=== PATIENT | male | born 1935 | race Caucasian/White ===

== ENCOUNTER 2017-10-03 12:01 | Emergency (ER) | payer MEDICARE, OTHER ==
[~2017-10-03] VITALS: Ht 175.3 cm; Wt 65.8 kg
[~2017-10-03 12:01] MED LIST: KEFLEX500 MG ORAL
[2017-10-03 12:18] VITALS: BP 131/81
[2017-10-03] MEDS ORDERED: Naproxen 375mg tab ORAL SCH (13:15)
--- NOTE | 2017-10-03 13:33 | Emergency Room Report ---
History of Present Illness General Chief Complaint: Multiple Trauma/Fall Source: Patient, Medical Record Present Illness HPI This patient kind of banged his left side/poked on bannister about 1.5 days ago. Went to who referred him here. Hurts on left posterior/lateral chest wall. No other cp. No sob but hurts a little to breathe. No fever, no cough. No abd pain. No vomiting. 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 yrs Review of Systems Constitutional: Denies: fever Eye: Denies: acuity changes Respiratory: Denies: cough, shortness of breath Cardiovascular: Denies: chest pain Gastrointestinal: Denies: nausea, vomiting Skin: Denies: rash Neurological: Denies: headache All Other Systems: negative except mentioned in HPI Physical Exam Vital Signs Date Time Temp Pulse Resp B/P (MAP) Pulse Ox O2 Delivery O2 Flow Rate FiO2 10/03/17 12:09 97.7 56 18 131/81 95 Room Air 97.7 General Appearance: well appearing, no apparent distress Head: normocephalic, atraumatic ENT: hearing grossly normal, normal voice Neck: full range of motion, supple Respiratory: no respiratory distress, speaking full sentences, other - there is reproducible tenderness left lateral costal margin Musculoskeletal: no calf tenderness Neurologic: alert, normal gait Psychiatric: mood/affect normal Skin: no rash Medical Decision Making Diagnostic Impression: Primary Impression: Contusion of rib on left side Chest X-Ray Diagnostic Results Chest X-Ray Diagnostic Results : Chest X-Ray Ordered: Yes # of Views/Limited/Complete: 1 View Indication: Chest Pain EP Interpretation: Yes Interpretation: no consolidation, no effusion, no pneumothorax, no acute cardiopulmonary disease Last Vital Signs Date Time Temp Pulse Resp B/P (MAP) Pulse Ox O2 Delivery O2 Flow Rate FiO2 10/03/17 12:18 97.7 58 18 131/81 95 Room Air 97.7 Disposition: HOME, SELF-CARE Condition: Stable Referrals: NON PHYSICIAN (PCP) Patient Instructions: Rib Contusion Gilbert Cruz M.D. Oct 03, 2017 13:33
[2017-10-03] MEDS ORDERED: NAPROXEN375 M2 ORAL (13:34)
[2017-10-03 13:53] VITALS: BP 131/81
--- NOTE | 2017-10-03 14:22 | Diagnostic Imaging Report ---
Indication: Chest pain Comparison: 04/29/2009 A single view chest radiograph was obtained. Findings: The lungs are clear. Borderline cardiomegaly is present. Bones are osteopenic. Pulmonary vascularity is normal. IMPRESSION: No acute disease
== END 2017-10-03 13:55 | disposition home or self-care (01) ==
LOC: EMR 13:20
DX: S20.211A Contusion of right front wall of thorax, initial encounter (principal); W22.8XXA Striking against or struck by other objects, initial encounter; Y93.89 Activity, other specified; Y92.89 Other specified places as the place of occurrence of the external cause
CPT/HCPCS: 71045; 99283

== ENCOUNTER 2017-11-14 00:28 | Inpatient (IN) | payer MEDICARE, OTHER ==
[~2017-11-14] VITALS: Ht 175.3 cm; Wt 68.1 kg
[~2017-11-14 00:28] MED LIST changes: +BACITRACIN-P28.35 GM TP; +BACTRIM DS TAB1 EAC1 ORAL; +CEPHALEXIN500 MG ORAL; +NAPROXEN375 M2 ORAL
[2017-11-14] MEDS ORDERED: LAMICTAL25 MG ORAL (00:54)
[2017-11-14 00:55] VITALS: BP 142/75
[2017-11-14 01:32] LABS: ANION GAP 8 mmol/L (5-15); BLOOD UREA NITROGEN 28 mg/dL (7-18); CALCIUM 9.6 MG/DL (8.5-10.1); CARBON DIOXIDE 27 MMOL/L (21-32); CHLORIDE 105 MMOL/L (98-107); CREATININE 1.3 MG/DL (0.55-1.30); HEMATOCRIT 42.6 % (42.0-52.0); HEMOGLOBIN 14.5 G/DL (14.2-18.0); MEAN CORPUSCULAR VOLUME 94 FL (80-99); PLATELET COUNT 141 K/UL (150-450); POTASSIUM 4.5 MMOL/L (3.5-5.1); RED BLOOD COUNT 4.53 M/UL (4.70-6.10); RED CELL DISTRIBUTION WIDTH 12.3 % (11.6-14.8); SODIUM 140 MMOL/L (136-145); WHITE BLOOD COUNT 7.5 K/UL (4.8-10.8)
[2017-11-14 02:00] VITALS: BP 144/76
[2017-11-14 02:09] LABS: APPEARANCE,URINE CLEAR; BILIRUBIN, URINE NEGATIVE (NEGATIVE); COLOR,URINE PALE YELLOW; GLUCOSE, URINE (UA) NEGATIVE (NEGATIVE); KETONES,URINE NEGATIVE (NEGATIVE); LEUKOCYTE ESTERASE ,URINE NEGATIVE (NEGATIVE); NITRITE,URINE NEGATIVE (NEGATIVE); PH,URINE 5 (4.5-8.0); PROTEIN,URINE 2+ (NEGATIVE); UROBILINOGEN,URINE NORMAL MG/DL (0.0-1.0)
--- NOTE | 2017-11-14 02:09 | Emergency Room Report ---
History of Present Illness General Chief Complaint: Multiple Trauma/Fall Source: Significant Other Present Illness HPI Is an 81-year-old male with a history of hemorrhagic stroke in the past. He is unsteady on his feet and uses a walker at home. He presents with chief complaint of increasing fall. His been ongoing for last few days. Per his he fell and sustained an abrasion to his right leg last week. He's been having incontinence of his urine. He's been unsteady on his feet. No fever chills but no nausea vomiting. He was trying get out of the car today and fell and had a skin abrasion to his right elbow. No head injury. No nausea no vomiting. No fever or chills. History is limited on this patient because of his dementia and previous stroke. History through his . Is no new focal deficit. Allergies: Coded Allergies: No Known Allergies (Verified Allergy, Unknown, 04/29/09) Patient History Past Medical History: see triage record, old chart reviewed Past Surgical History: other Pertinent Family History: none Social History: Denies: smoking Immunizations: other Reviewed Nursing Documentation: PMH: Agreed; PSxH: Agreed Nursing Documentation-PMH Past Medical History: No History, Except For Hx Neurological Problems: Yes - encephalitis Review of Systems Eye: Denies: eye pain, blurred vision ENT: Denies: ear pain, nose congestion, throat swelling Respiratory: Denies: cough, shortness of breath Cardiovascular: Denies: chest pain, palpitations Gastrointestinal: Denies: abdominal pain, diarrhea, nausea, vomiting Musculoskeletal: Reports: joint pain, muscle pain; Denies: back pain Skin: Denies: rash Neurological: Denies: headache, numbness Endocrine: Denies: increased thirst, increased urine Hematologic/Lymphatic: Denies: easy bruising All Other Systems: negative except mentioned in HPI Physical Exam Vital Signs Date Time Temp Pulse Resp B/P (MAP) Pulse Ox O2 Delivery O2 Flow Rate FiO2 11/14/17 00:48 97.6 62 21 167/90 99 Room Air 97.5 vitals with high blood pressure Sp02 EP Interpretation: reviewed, normal General Appearance: no apparent distress, alert, Chronically Ill Head: normocephalic, atraumatic Eyes: bilateral eye PERRL, bilateral eye EOMI ENT: hearing grossly normal, normal pharynx Neck: full range of motion, supple, no meningismus Respiratory: chest non-tender, lungs clear, normal breath sounds Cardiovascular #1: regular rate, rhythm, no murmur Gastrointestinal: normal bowel sounds, non tender, no mass, no organomegaly, no bruit, non-distended Musculoskeletal: back normal, normal range of motion, other - Right elbow with skin avulsion. Full range of motion. Skin abrasion to left forearm. Skin abrasion to right tib-fib. Neurologic: alert, oriented x3 Psychiatric: mood/affect normal Skin: warm/dry Medical Decision Making Diagnostic Impression: Primary Impression: Multiple injuries due to trauma Additional Impressions: Frequent falls Failure to thrive Qualified Codes: R62.7 - Adult failure to thrive Dehydration Abrasion of skin ER Course Patient presents with frequent falls. No evidence of any fracture. No evidence of any bleed. Increased risk for head injury and fracture because of fall risk. No evidence of any infection. Will admit for further workup. May need snf placement. I contacted Dr. Pitts for admission. Lab Results Impression labs unremarkable EKG Diagnostic Results Rate: normal Rhythm: NSR ST Segments: no acute changes Rhythm Strip Diag. Results Rhythm Strip Time: 02:33 EP Interpretation: yes Rate: 65 Rhythm: NSR, no PVC's, no ectopy Chest X-Ray Diagnostic Results Chest X-Ray Diagnostic Results : Chest X-Ray Ordered: Yes # of Views/Limited/Complete: 1 View Indication: Shortness of Breath EP Interpretation: Yes Interpretation: no consolidation, no effusion, no pneumothorax, no acute cardiopulmonary disease Impression: No acute disease Electronically Signed by: Og Low MD Other X-Ray Diagnostic Results Other X-Ray Diagnostic Results : X-Ray ordered: Rt elbow xrays # of Views/Limited Vs Complete: 3 View Indication: Pain EP Interpretation: Yes Interpretation: no dislocation, no soft tissue swelling, no fractures Impression: No acute disease Electronically Signed by: Og Low MD CT/MRI/US Diagnostic Results CT/MRI/US Diagnostic Results : Imaging Test Ordered: CT head Impression no acute process per radiologist Last Vital Signs Date Time Temp Pulse Resp B/P (MAP) Pulse Ox O2 Delivery O2 Flow Rate FiO2 11/14/17 00:48 97.6 62 21 167/90 99 Room Air 97.5 Status: improved Disposition: ADMITTED INPATIENT Condition: Serious Referrals: NON PHYSICIAN (PCP) Og Low MD Nov 14, 2017 02:09
[2017-11-14 08:00] VITALS: BP 131/71
--- NOTE | 2017-11-14 08:56 | Consultation ---
History of Present Illness General Date patient seen: Nov 14, 2017 Chief Complaint: Present Illness Allergies: Coded Allergies: No Known Allergies (Verified Allergy, Unknown, 04/29/09) Medication History Scheduled Lamotrigine* (Lamictal*), 50 MG ORAL BID, (Reported) Discontinued Medications Bacitracin/Polymyxin B Sulfate (Bacitracin-Polymyxin Ointment), 1 APPLIC TP BID Discontinued Reason: Therapy completed Cephalexin* (Keflex*), 500 MG ORAL Q6H Discontinued Reason: Therapy completed Cephalexin* (Keflex*), 500 MG ORAL EVERY 12 HOURS Discontinued Reason: Therapy completed Naproxen* (Naproxen*), 375 MG ORAL TWICE A DAY Discontinued Reason: Therapy completed Trimethoprim/Sulfamethoxazole 160/800* (Bactrim Ds Tablet*), 1 TAB ORAL TWICE A DAY Discontinued Reason: Therapy completed Patient History Healthcare decision maker Clarence Ferrara Resuscitation status Full Code Advanced Directive on File No Physical Exam Last 24 Hour Vital Signs Date Time Temp Pulse Resp B/P (MAP) Pulse Ox O2 Delivery O2 Flow Rate FiO2 11/14/17 04:11 Room Air 11/14/17 03:45 97.6 68 22 144/76 99 Room Air 97.6 11/14/17 02:00 97.6 68 22 144/76 99 Room Air 97.6 11/14/17 00:55 97.6 67 22 142/75 99 Room Air 97.6 11/14/17 00:48 97.6 62 21 167/90 99 Room Air 97.5 Intake and Output 11/13/17 11/14/17 19:00 07:00 Intake Total 1000 ml Balance 1000 ml Intake IV Total 1000 ml # Voids 2 # Bowel Movements 1 Laboratory Tests Test 11/14/17 01:10 11/14/17 01:50 White Blood Count 7.5 K/UL (4.8-10.8) Red Blood Count 4.53 M/UL (4.70-6.10) L Hemoglobin 14.5 G/DL (14.2-18.0) Hematocrit 42.6 % (42.0-52.0) Mean Corpuscular Volume 94 FL (80-99) Mean Corpuscular Hemoglobin 32.0 PG (27.0-31.0) H Mean Corpuscular Hemoglobin Concent 34.1 G/DL (32.0-36.0) Red Cell Distribution Width 12.3 % (11.6-14.8) Platelet Count 141 K/UL (150-450) L Mean Platelet Volume 5.6 FL (6.5-10.1) L Neutrophils (%) (Auto) % (45.0-75.0) Lymphocytes (%) (Auto) % (20.0-45.0) Monocytes (%) (Auto) % (1.0-10.0) Eosinophils (%) (Auto) % (0.0-3.0) Basophils (%) (Auto) % (0.0-2.0) Sodium Level 140 MMOL/L (136-145) Potassium Level 4.5 MMOL/L (3.5-5.1) Chloride Level 105 MMOL/L (98-107) Carbon Dioxide Level 27 MMOL/L (21-32) Anion Gap 8 mmol/L (5-15) Blood Urea Nitrogen 28 mg/dL (7-18) H Creatinine 1.3 MG/DL (0.55-1.30) Estimat Glomerular Filtration Rate mL/min (>60) Glucose Level 101 MG/DL (74-106) Calcium Level 9.6 MG/DL (8.5-10.1) Troponin I 0.040 ng/mL (0.000-0.056) Urine Color Pale yellow Urine Appearance Clear Urine pH 5 (4.5-8.0) Urine Specific [place] 1.020 (1.005-1.035) Urine Protein 2+ (NEGATIVE) H Urine Glucose (UA) Negative (NEGATIVE) Urine Ketones Negative (NEGATIVE) Urine Blood 5+ (NEGATIVE) H Urine Nitrite Negative (NEGATIVE) Urine Bilirubin Negative (NEGATIVE) Urine Urobilinogen Normal MG/DL (0.0-1.0) Urine Leukocyte Esterase Negative (NEGATIVE) Urine RBC 40-60 /HPF (0 - 0) H Urine WBC 0-2 /HPF (0 - 0) Urine Squamous Epithelial Cells None /LPF (NONE/OCC) Urine Bacteria Few /HPF (NONE) Height (Feet): 5 Height (Inches): 9.00 Weight (Pounds): 150 Medications Current Medications Medications (Trade) Dose Ordered Sig/[place] Route PRN Reason Start Time Stop Time Status Last Admin Dose Admin Acetaminophen (Tylenol) 650 mg Q4H PRN ORAL Mild Pain/Temp > 100.5 10/10/18 05:45 12/14/17 05:44 Clonidine HCl (Catapres Tab) 0.1 mg Q6H PRN ORAL For High Blood Pressure 11/14/17 05:45 12/14/17 05:44 Lamotrigine (LaMICtal) 50 mg Q12HR ORAL 11/14/17 09:00 12/14/17 08:59 Ondansetron HCl (Zofran) 4 mg Q6H PRN IVP Nausea & Vomiting 11/14/17 05:45 12/14/17 05:44 Sodium Chloride 1,000 ml @ 60 mls/hr [id number] IV 11/14/17 07:00 12/14/17 06:59 Assessment/Plan Assessment/Plan (1) Lumbago (2) S/p Fall seen dictated Iban Hunt Nov 14, 2017 08:56
--- NOTE | 2017-11-14 11:35 | Diagnostic Imaging Report ---
Indication: Altered mental status Technique: Contiguous 5 mm thick transaxial imaging of the head obtained in a Siemens Sensation [address] scanner. Soft tissue and bone windows generated. Automatic Exposure Control was utilized. Total Dose length Product (DLP): [address] Dose Index Volume (CTDIvol): 70.38 mGy Comparison: 04/29/2009 Findings: Large area of encephalomalacia noted in the left temporal and parietal lobe consistent with an old infarct. Similar findings on the prior occasion noted There is moderate prominence of the ventricles, basal cisterns, and cerebral sulci consistent with atrophy. Moderate, nonspecific, white matter hypoattenuation is noted throughout the brain consistent with chronic small vessel disease. There is no midline shift, edema, acute hemorrhage, mass effect, or abnormal extra-axial fluid collections. Bones and extra osseous soft tissues are unremarkable. Impression: No acute intracranial bleed, mass effect or edema. Large old infarct left temporal parietal lobe. Moderate atrophy of the brain. Evidence of chronic small vessel disease involving white matter tracts. [facility] has communicated the preliminary results to the Emergency Department. Their findings are largely concordant with this report. The CT scanner at [facility] is accredited by the [employer] and the scans are performed using dose optimization techniques as appropriate to a performed exam including Automatic Exposure control.
[2017-11-14 12:00] VITALS: BP 116/62
--- NOTE | 2017-11-14 12:01 | Diagnostic Imaging Report ---
Indication: Elbow Pain Findings: 3 views of the right elbow were obtained. No acute fractures, malalignment, erosions or periostitis are identified. Bone mineralization is within normal limits. Soft tissues are unremarkable. Impression: Negative examination of the elbow.
--- NOTE | 2017-11-14 12:02 | Diagnostic Imaging Report ---
Indication: Dyspnea Comparison: 10/03/2017 A single view chest radiograph was obtained. Findings: Cardiomediastinal appearance is within normal limits for age. The lungs are clear. Pulmonary vascularity is appropriate. The diaphragmatic contour is smooth and costophrenic angles are sharp. No pleural effusions are identified. The bones are osteopenic. There is no interval change. Impression: No acute findings
--- NOTE | 2017-11-14 14:04 | Diagnostic Imaging Report ---
Indication: Back pain Comparison: None Findings: 3 views of the lumbar spine were obtained. Multilevel narrowing of intervertebral disks and associated endplate and facet osteophytes are present. No malalignment identified. No acute fracture definitely seen. Bones are osteopenic. Impression: Mild spondylosis. Osteopenia No acute injury appreciated.
--- NOTE | 2017-11-14 15:09 | Cardiology Report ---
APPROVED REPORT EKG Measurement Heart [id number] HI [id number] Normal sinus rhythm Junctional ST depression, probably normal Borderline ECG
[2017-11-14 16:00] VITALS: BP 135/86
--- NOTE | 2017-11-14 16:37 | Cardiac Electrophysiology PN ---
Subjective Subjective [id number] Objective Last 24 Hour Vital Signs Date Time Temp Pulse Resp B/P (MAP) Pulse Ox O2 Delivery O2 Flow Rate FiO2 11/14/17 12:00 97.9 53 18 116/62 (80) 97 97.9 11/14/17 09:00 Room Air 11/14/17 08:00 98.0 56 18 131/71 (91) 99 98.0 11/14/17 04:11 Room Air 11/14/17 03:45 97.6 68 22 144/76 99 Room Air 97.6 11/14/17 02:00 97.6 68 22 144/76 99 Room Air 97.6 11/14/17 00:55 97.6 67 22 142/75 99 Room Air 97.6 11/14/17 00:48 97.6 62 21 167/90 99 Room Air 97.5 Intake and Output 11/13/17 11/14/17 19:00 07:00 Intake Total 1000 ml Balance 1000 ml Intake IV Total 1000 ml # Voids 2 # Bowel Movements 1 Laboratory Tests Test 11/14/17 01:10 11/14/17 01:50 White Blood Count 7.5 K/UL (4.8-10.8) Red Blood Count 4.53 M/UL (4.70-6.10) L Hemoglobin 14.5 G/DL (14.2-18.0) Hematocrit 42.6 % (42.0-52.0) Mean Corpuscular Volume 94 FL (80-99) Mean Corpuscular Hemoglobin 32.0 PG (27.0-31.0) H Mean Corpuscular Hemoglobin Concent 34.1 G/DL (32.0-36.0) Red Cell Distribution Width 12.3 % (11.6-14.8) Platelet Count 141 K/UL (150-450) L Mean Platelet Volume 5.6 FL (6.5-10.1) L Neutrophils (%) (Auto) % (45.0-75.0) Lymphocytes (%) (Auto) % (20.0-45.0) Monocytes (%) (Auto) % (1.0-10.0) Eosinophils (%) (Auto) % (0.0-3.0) Basophils (%) (Auto) % (0.0-2.0) Sodium Level 140 MMOL/L (136-145) Potassium Level 4.5 MMOL/L (3.5-5.1) Chloride Level 105 MMOL/L (98-107) Carbon Dioxide Level 27 MMOL/L (21-32) Anion Gap 8 mmol/L (5-15) Blood Urea Nitrogen 28 mg/dL (7-18) H Creatinine 1.3 MG/DL (0.55-1.30) Estimat Glomerular Filtration Rate mL/min (>60) Glucose Level 101 MG/DL (74-106) Calcium Level 9.6 MG/DL (8.5-10.1) Troponin I 0.040 ng/mL (0.000-0.056) Urine Color Pale yellow Urine Appearance Clear Urine pH 5 (4.5-8.0) Urine Specific [place] 1.020 (1.005-1.035) Urine Protein 2+ (NEGATIVE) H Urine Glucose (UA) Negative (NEGATIVE) Urine Ketones Negative (NEGATIVE) Urine Blood 5+ (NEGATIVE) H Urine Nitrite Negative (NEGATIVE) Urine Bilirubin Negative (NEGATIVE) Urine Urobilinogen Normal MG/DL (0.0-1.0) Urine Leukocyte Esterase Negative (NEGATIVE) Urine RBC 40-60 /HPF (0 - 0) H Urine WBC 0-2 /HPF (0 - 0) Urine Squamous Epithelial Cells None /LPF (NONE/OCC) Urine Bacteria Few /HPF (NONE) Bridger Du MD Nov 14, 2017 16:37
--- NOTE | 2017-11-14 19:00 | Consultation ---
DATE OF CONSULTATION: 11/14/2017 PAIN MANAGEMENT CONSULTATION CONSULTING PHYSICIAN: Mireille Ugarte M.D. REFERRING PHYSICIAN: Kristin Kong M.D. PHYSICIAN PNEUMATIC JACKETER: Matthias Jean CHIEF COMPLAINT: Back pain. HISTORY OF PRESENT ILLNESS: The patient is a 81-year-old male who is being seen on the Medical/Surgical floor of [facility] for initial comprehensive pain management consultation. The patient has been admitted under the care of Dr. Kong with history of hemorrhagic stroke in the past. He was walking at home with a walker and fell onto his back, started to have pain in his back. He is able to walk, stand, move his extremities and complaining of some mild pain in his back, has a history of dementia and just he walks around on his own to the bathroom with the help of the nurse. We were consulted so the patient will have adequate pain control while here in the hospital. PAST MEDICAL HISTORY: Stroke and dementia. SOCIAL HISTORY: Denies smoking tobacco, drinking alcohol, or drug abuse. MEDICATIONS: Lamictal. ALLERGIES: No known drug allergies. REVIEW OF SYSTEMS: Denies rash, fever, chills, sweating, dizziness, drowsiness, blurred vision, sore throat, or change in weight. No shortness of breath or chest pain. No nausea, vomiting, or blood in stool or urine. No bowel or bladder incontinence. No dysuria. He is complaining of back pain. PHYSICAL EXAMINATION: GENERAL: Alert, awake, and oriented. VITAL SIGNS: Blood pressure 144/76, heart rate 68, oxygen saturation 99%, respiratory rate is 19, and temperature is 97.6 degrees Fahrenheit. HEENT: PERRLA. NECK: Range of motion is full in all directions. No tenderness to paracervical muscles. No adenopathy. LUNGS: Decreased breath sounds bilaterally. HEART: Regular. ABDOMEN: Benign. BACK: Range of motion is decreased in flexion and extension with tenderness in paraspinal muscles. No tenderness in trapezius and rhomboid muscles EXTREMITIES: Upper and lower extremity range of motion reduced due to the patient's condition. No cyanosis. No clubbing. Sensory is intact. Reflexes are unobtainable. No adenopathy. ASSESSMENT AND PLAN: This is an 82-year-old male with status post fall, lumbago. X-ray of lumbar spine to rule out further pathology in his lower back as well as continued on Tylenol 650 mg tablet every 4 hours as needed for mild pain. The patient was discussed with Dr. Ugarte and Dr. Ugarte concurred. We will follow up the patient. Thank you very much for the courtesy of this consultation. Mireille Ugarte M.D. ADONIS Jean DR: Heriberto JOB#: [id number] CC: LILIAN
[2017-11-14 20:45] VITALS: BP 158/75
--- NOTE | 2017-11-14 21:25 | General Progress Note ---
Assessment/Plan Assessment/Plan Assessment - Dementia - FTT - hematuria Recommendations - 48 hour calorie count - check stool OB - renal ultrasound - cipro - consider urology evaluation Subjective Allergies: Coded Allergies: No Known Allergies (Verified Allergy, Unknown, 04/29/09) Objective Last 24 Hour Vital Signs Date Time Temp Pulse Resp B/P (MAP) Pulse Ox O2 Delivery O2 Flow Rate FiO2 11/14/17 16:00 98.1 58 18 135/86 (102) 97 98.1 11/14/17 12:00 97.9 53 18 116/62 (80) 97 97.9 11/14/17 09:00 Room Air 11/14/17 08:00 98.0 56 18 131/71 (91) 99 98.0 11/14/17 04:11 Room Air 11/14/17 03:45 97.6 68 22 144/76 99 Room Air 97.6 11/14/17 02:00 97.6 68 22 144/76 99 Room Air 97.6 11/14/17 00:55 97.6 67 22 142/75 99 Room Air 97.6 11/14/17 00:48 97.6 62 21 167/90 99 Room Air 97.5 Intake and Output 11/13/17 11/14/17 19:00 07:00 Intake Total 1000 ml Balance 1000 ml IV Total 1000 ml # Voids 2 # Bowel Movements 1 Laboratory Tests 11/14/17 01:10: White Blood Count 7.5, Red Blood Count 4.53L, Hemoglobin 14.5, Hematocrit 42.6, Mean Corpuscular Volume 94, Mean Corpuscular Hemoglobin 32.0H, Mean Corpuscular Hemoglobin Concent 34.1, Red Cell Distribution Width 12.3, Platelet Count 141L, Mean Platelet Volume 5.6L, Neutrophils (%) (Auto) , Lymphocytes (%) (Auto) , Monocytes (%) (Auto) , Eosinophils (%) (Auto) , Basophils (%) (Auto) , Sodium Level 140, Potassium Level 4.5, Chloride Level 105, Carbon Dioxide Level 27, Anion Gap 8, Blood Urea Nitrogen 28H, Creatinine 1.3, Estimat Glomerular Filtration Rate , Glucose Level 101, Calcium Level 9.6, Troponin I 0.040 11/14/17 01:50: Urine Color Pale yellow, Urine Appearance Clear, Urine pH 5, Urine Specific [place] 1.020, Urine Protein 2+H, Urine Glucose (UA) Negative, Urine Ketones Negative, Urine Blood 5+H, Urine Nitrite Negative, Urine Bilirubin Negative, Urine Urobilinogen Normal, Urine Leukocyte Esterase Negative, Urine RBC 40-60H, Urine WBC 0-2, Urine Squamous Epithelial Cells None, Urine Bacteria Few Height (Feet): 5 Height (Inches): 9.00 Weight (Pounds): 150 Leti Saunders MD Nov 14, 2017 21:25
--- NOTE | 2017-11-14 22:56 | Consultation ---
Consult Note Consult Note dict# [id number] Eleni Kathleen MD Nov 14, 2017 22:56
--- NOTE | 2017-11-14 23:15 | Consultation ---
DATE OF CONSULTATION: 11/14/2017 CARDIOLOGY CONSULTATION CONSULTING PHYSICIAN: Bridger Du M.D. REFERRING PHYSICIAN: Kristin Kong M.D. REASON FOR CONSULTATION: Bradycardia. HISTORY OF PRESENT ILLNESS: The patient is an 82-year-old gentleman with history of hemorrhagic stroke in the past as well as hypertension who was admitted to the hospital for unsteady gait. The patient has had increasing falls. The reason why the patient sustained abrasion in his right leg last week. He has been incontinent of the urine. He was trying to get out of his car and fell, had skin abrasion on the right elbow without any head injury. The patient was admitted to telemetry floor. However on the routine vital signs check his heart rate was 50. Cardiology consultation was obtained for further evaluation. At the time of my evaluation, the patient is pleasantly confused. Denies any chest pain or shortness of breath. REVIEW OF SYSTEMS: Review of systems was negative other than what was mentioned in the history of present illness. PAST MEDICAL HISTORY: As mentioned above. FAMILY HISTORY: Noncontributory. SOCIAL HISTORY: Denies smoking or drinking alcohol. PHYSICAL EXAMINATION: VITAL SIGNS: Blood pressure is 116/62, pulse is 53, respirations 18, and he is afebrile. HEAD AND NECK: Showed no JVD or carotid bruits. LUNGS: clear. CARDIOVASCULAR: Bradycardic. S1 and S2 with no gallop or murmur. ABDOMEN: Soft. EXTREMITIES: No pitting edema. LABORATORY DATA: White count 7.5, hematocrit of 14.5, hematocrit 42.7, platelet count 141. Sodium 140, potassium 4.5, BUN of 29, creatinine 1.3. Troponin is negative. His initial EKG shows sinus rhythm with junctional ST depression. ASSESSMENT AND PLAN: 1. Bradycardia. Heart rate in the 50s. The patient is only on p.r.n. clonidine, off any sinus edi or AV edi blocking agents. Get the EKG and transfer to telemetry for closer monitoring. In the meantime get echocardiogram as well as a thyroid function tests. 2. Hypertension. Blood pressure currently 116/62. Hold all blood pressure medication. 3. Dementia. 4. Recurrent falls. 5. History of hemorrhagic stroke. Thank you very much, Dr. Kong, for allowing me to participate in the care of this patient. Please do not hesitate to contact me for any questions regarding my evaluation. Sincerely, Bridger Du M.D. DR: Elena JOB#: [id number] CC:
[2017-11-15] VITALS: BP 127/76
--- NOTE | 2017-11-15 03:45 | History and Physical Report ---
DATE OF ADMISSION: 11/14/2017 "NOTE: POOR AUDIO QUALITY" HISTORY OF PRESENT ILLNESS: The patient is admitted for failure to thrive, multiple falls. The patient has advanced dementia, very poor historian, cannot get any reliable history from the patient, however, denies pain. He has been having frequent falls and failure to thrive with history of intracranial bleed in the past. He has bradycardia. PAST MEDICAL HISTORY: Significant for advanced dementia, history of bradycardia in the past, and history of multiple falls. PAST SURGICAL HISTORY: None. ALLERGIES: No known allergies. MEDICATIONS: Lamictal. FAMILY HISTORY: Unable to obtain. SOCIAL HISTORY: Unable to obtain. REVIEW OF SYSTEMS: Unable to obtain. He is a very poor historian. PHYSICAL EXAMINATION: VITAL SIGNS: Temperature is 97.6 degrees, pulse is , and blood pressure 143/76. HEENT: PERRLA. NECK: Supple. No lymphadenopathy. CHEST: Clear to auscultation. CARDIOVASCULAR: Bradycardic. No murmurs. GASTROINTESTINAL: Soft, nontender, and nondistended. No organomegaly. EXTREMITIES: No edema. Moves all four extremities. . Reflexes on both sides. NEUROLOGIC: Oriented to name only. LABORATORY DATA: WBC of 7.5, hemoglobin 14.5, and platelets 141,000. Sodium 140, potassium 4.5, BUN of 28, and creatinine 1.3. negative. ASSESSMENT AND PLAN: 1. Bradycardia. 2. Failure to thrive. 3. Dementia. 4. Status post falls. I have asked Dr. Lugo, Dr. Saunders, Dr. Parada, Dr. Kathleen, Dr. Pawel Thapa, and Dr. Ugarte to see the patient for the pain control, any infectious etiology as well as for failure to thrive as well as for further treatment of bradycardia. Kristin Kong M.D. DR: UDAY JOB#: [id number] CC:
[2017-11-15 04:00] VITALS: BP 133/78
--- NOTE | 2017-11-15 05:00 | Consultation ---
DATE OF CONSULTATION: 11/14/2017 GASTROENTEROLOGY CONSULTATION NOTE CONSULTING PHYSICIAN: Leti Saunders M.D. CHIEF COMPLAINT: I was asked to see this patient by Dr. Kristin Kong for evaluation of failure to thrive. HISTORY OF PRESENT ILLNESS: The patient is a pleasant unfortunate 82-year-old white man, who had a history of stroke in the past resulting in significant cognitive decline, he is brought in by his due to weakness and his failure to thrive. The patient has had possible oral intake. His history however is somewhat poor, but he can interact. He also complains of some back pain. His urine has some red cells on the microscopic exam. The states that he had a colonoscopy many years ago and she cannot recall the results. The patient reportedly had OB negative stools few months ago. PAST MEDICAL HISTORY: History of back pain and history of dementia. FAMILY HISTORY: Noncontributory. SOCIAL HISTORY: The patient is and lives in [facility]. His looks after his affairs. MEDICATIONS: Outpatient medications include Lamictal. ALLERGIES: None. REVIEW OF SYSTEMS: Otherwise negative. PHYSICAL EXAMINATION: GENERAL: This is an elderly white man, seen in his room with his at bedside. HEENT: Normocephalic and atraumatic. Sclerae are anicteric. Oropharynx clear. NECK: Supple. CHEST: Clear to auscultation. CARDIOVASCULAR: Revealed a regular rate. ABDOMEN: Soft. EXTREMITIES: Revealed no edema. LABORATORY DATA: Noted. ASSESSMENT: This patient presents with failure to thrive, weakness, and dementia. We will check his calorie counts to assess his nutritional intake. He should also have his stools checked for occult blood. He does have hematuria due to a bladder lesion, some type of urinary tract infection. I will start him on Cipro and obtain a renal ultrasound. Urology consult can be considered to evaluate his urinary system given the microscopic hematuria. RECOMMENDATIONS: Per above discussion and per orders written in the chart. Thank you for asking me to participate in the care of this patient. Leti Saunders M.D. DR: AFRICA JOB#: [id number] CC: LILIAN
--- NOTE | 2017-11-15 06:00 | Consultation ---
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 The patient apparently was 2009 and 10 days after, he went into coma, was admitted at [facility]. The patient was told that he would not recover and the had to make a decision on continued care and walking after extensive damage to his temporal lobe. that he has been on a regular basis. He recently neurologist for three months ago. He has episodes of confusion, memory impairment, and anxiety. His stated that he is reluctant to eat vegetables, fruits, or proteins. . He has been losing weight and is malnourished. Yesterday, the took him to a restaurant for a good meal. The patient started having more confusion. and he became very weak, unable to come out of the bathroom. He was brought restaurant. The patient and sustained a fall and injury to multiple areas of his body . CT scan of the head did not show any acute injuries. The was reluctant to MRI of the brain and stated that he rather has . She also stated that she would like to take him back to his original neurologist, who is very familiar with him. The patient had waxing and waning of consciousness. He had episodes of confusion. During evaluation, he was able to answer basic questions and was engaged during evaluation. His was in the room. PAST PSYCHIATRIC HISTORY: He has a history of depression and anxiety. PAST MEDICAL HISTORY: Significant for recurrent UTI and encephalitis. There was no history of stroke according to and failure to thrive. ALLERGIES: No known drug allergies. SUBSTANCE ABUSE HISTORY: No known history of illicit drug use or alcohol. MENTAL STATUS EXAMINATION: The patient was alert and oriented to time, self, place, and situation he is in. Mood was anxious. Affect was constricted. Congruent mood. Thought process, concrete. Thought content, no suicidal or homicidal ideation. ASSESSMENT: [place] I Encephalopathy due to general medical condition. [place] II Deferred. [place] III As above. [place] IV Low. [place] V 25. PLAN: 1. We will start the patient on Zyprexa 2.5 mg at bedtime as needed. 2. Contact the neurologist and may order an MRI of the brain if needed. 3. Provide the patient with supportive therapy. discussed the case with . Eleni Kathleen M.D. DR: JERILYN JOB#: [id number] CC:
--- NOTE | 2017-11-15 06:40 | Consultation ---
Consult Note Consult Note Hematology Oncology Consult RFC: Thrombocytopenia, FTT REQ MD: Kristin Kong DOS: 11/14/17 Chief Complaint: Multiple Trauma/Fall ID 81-year-old male with a history of hemorrhagic stroke in the past. He is unsteady on his feet and uses a walker at home. He presents with chief complaint of increasing fall. His been ongoing for last few days. Per his he fell and sustained an abrasion to his right leg last week. He's been having incontinence of his urine. He's been unsteady on his feet. No fever chills but no nausea vomiting. He was trying get out of the car today and fell and had a skin abrasion to his right elbow. No head injury. No nausea no vomiting. No fever or chills. History is limited on this patient because of his dementia and previous stroke. History through his . Is no new focal deficit. Noted to have mild thrombocytopenia and hematology service consulted. Allergies: No Known Allergies (Verified Allergy, Unknown, 04/29/09) Patient History Past Medical History: see triage record, old chart reviewed Past Surgical History: other Pertinent Family History: none Social History: Denies: smoking Immunizations: other Reviewed Nursing Documentation: PMH: Agreed; PSxH: Agreed Nursing Documentation-PMH Past Medical History: No History, Except For Hx Neurological Problems: Yes - encephalitis Review of Systems: Eye: Denies: eye pain ENT: Denies: ear pain, nose congestion Respiratory: Denies: cough, shortness of breath Cardiovascular: Denies: chest pain, palpitations Gastrointestinal: Denies: abdominal pain, diarrhea, nausea, vomiting Musculoskeletal: Reports: joint pain, muscle pain; Denies: back pain Skin: Denies: rash Neurological: Denies: headache Endocrine: Denies: increased thirst Physical Exam Vital Signs Date Time Temp Pulse Resp B/P (MAP) Pulse Ox O2 Delivery O2 Flow Rate FiO2 11/14/17 00:48 97.6 62 21 167/90 99 Room Air 97.5 Vitals: reviewed, normal General Appearance: no apparent distress, chronically Ill Head: normocephalic, atraumatic Eyes: bilateral eye PERRL ENT: hearing grossly normal Neck: full range of motion, supple, no meningismus Respiratory: chest non-tender, lungs clear Cardiovascular #1: rrr, no murmur Gastrointestinal: normal bowel sounds, non tender, no mass, no organomegaly, no bruit, non-distended Musculoskeletal: back normal, normal range of motion, other - Right elbow with skin avulsion Skin abrasion to right tib-fib. Neurologic: alert, oriented x3 Psychiatric: mood/affect normal Skin: warm/dry labs: reviewed in emr Imaging: reviewed in emr Assessment and Recs: # Thrombocytopenia at this time remains mild at this moment --> potentially medication related, on antipepileptic versus acute stress from either calls or infection --> okay to continue antipepileptic meds, have been reviewed --> hep and hiv ordered as well # Failure to thrive -- some weight loss over last several months noted --> cea and psa have been ordered as well --> gi recs appreciated # Frequent falls. No evidence of any fracture. No evidence of any bleed. Increased risk for head injury and fracture because of fall risk. No evidence of any infection. --> admitted for further workup. May need skilled nursing placement. CT head: no acute process per radiologist --> psych and cards recs appreciated # Dehydration -- started on ivf # Abrasion of skin # Hematuria Greatly appreciate consultation! Clifton Sal MD Nov 15, 2017 06:40
[2017-11-15 07:59] VITALS: BP 149/84
--- NOTE | 2017-11-15 09:03 | General Progress Note ---
Assessment/Plan Assessment/Plan (1) Lumbago (2) S/p Fall Pt will be continued on Tylenol as needed. D/w Dr. Ugarte and he concurred. Subjective Date patient seen: Nov 15, 2017 Time patient seen: 07:15 - am Constitutional: Reports: weakness HEENT: Reports: no symptoms Cardiovascular: Reports: no symptoms Respiratory: Reports: no symptoms Gastrointestinal/Abdominal: Reports: no symptoms Genitourinary: Reports: no symptoms Neurologic/Psychiatric: Reports: weakness Endocrine: Reports: no symptoms Hematologic/Lymphatic: Reports: no symptoms Allergies: Coded Allergies: No Known Allergies (Verified Allergy, Unknown, 04/29/09) Subjective Patient is in bed showing no signs of pain or distress. Reports that he is feeling well and Xray was reviewed with the patient. Objective Last 24 Hour Vital Signs Date Time Temp Pulse Resp B/P (MAP) Pulse Ox O2 Delivery O2 Flow Rate FiO2 11/15/17 07:59 98.0 68 20 149/84 (105) 99 98.0 11/15/17 07:54 Room Air 11/15/17 07:51 65 11/15/17 04:00 48 11/15/17 04:00 98.0 61 20 133/78 (96) 99 98.0 11/15/17 00:00 98.2 52 20 127/76 (93) 98 98.2 11/15/17 00:00 52 11/14/17 21:00 Room Air 11/14/17 20:45 98.4 58 23 158/75 (102) 100 98.4 11/14/17 16:00 98.1 58 18 135/86 (102) 97 98.1 11/14/17 12:00 97.9 53 18 116/62 (80) 97 97.9 Intake and Output 11/14/17 11/15/17 19:00 07:00 Intake Total 1360 ml Balance 1360 ml Intake Oral 880 ml IV Total 480 ml # Voids 7 2 # Bowel Movements 1 1 Laboratory Tests 11/15/17 06:55: Carcinoembryonic Antigen [Pending], Prostate Specific Antigen 9.35H Height (Feet): 5 Height (Inches): 9.00 Weight (Pounds): 150 General Appearance: no apparent distress, alert EENT: PERRL/EOMI, normal ENT inspection Neck: normal alignment Cardiovascular: normal rate, regular rhythm Respiratory/Chest: decreased breath sounds Abdomen: non tender, soft Extremities: non-tender Edema: no edema noted Arm (L), no edema noted Arm (R), no edema noted Leg (L), no edema noted Leg (R), no edema noted Pedal (L), no edema noted Pedal (R), no edema noted Generalized Neurologic: alert, responsive Objective Procedure: XRAY L Spine Min 4v Indication: Back pain Comparison: None Findings: 3 views of the lumbar spine were obtained. Multilevel narrowing of intervertebral disks and associated endplate and facet osteophytes are present. No malalignment identified. No acute fracture definitely seen. Bones are osteopenic. Impression: Mild spondylosis. Osteopenia No acute injury appreciated. Iban Hunt Nov 15, 2017 09:03
--- NOTE | 2017-11-15 10:00 | Diagnostic Imaging Report ---
Indication:Elevated Bun and Creatinine. Hematuria Technique: Grayscale and duplex Doppler imaging of the kidneys performed. Comparison: None Findings: Small echogenic foci which shadowing demonstrated within the kidneys consistent with nephrolithiasis. There is no hydronephrosis. The right kidney measures approximately 10.9 cm. The left kidney measures approximately 10 cm. IVC and bladder are unremarkable. IMPRESSION: Nonobstructive bilateral nephrolithiasis
--- NOTE | 2017-11-15 10:40 | General Progress Note ---
Assessment/Plan Assessment/Plan Assessment and Recs: # Thrombocytopenia at this time remains mild at this moment --> potentially medication related, on antipepileptic versus acute stress from either calls or infection --> okay to continue antipepileptic meds, have been reviewed --> hep and hiv ordered as well # Elevated psa of 9.35, would recommend further eval --> obtain prior trend --> obtain bone study to r/o mets # Failure to thrive -- some weight loss over last several months noted --> cea ordered as well --> gi recs appreciated # Frequent falls. No evidence of any fracture. No evidence of any bleed. Increased risk for head injury and fracture because of fall risk. No evidence of any infection. --> admitted for further workup. May need intermediate placement. CT head: no acute process per radiologist --> psych and cards recs appreciated --> norco prn for pain, seeing pain management # Dehydration -- started on ivf # Abrasion of skin # Hematuria Greatly appreciate consultation! Subjective Constitutional: Denies: no symptoms, chills, diaphoresis, fever, malaise, weakness, other HEENT: Denies: no symptoms, eye pain, blurred vision, tearing, double vision, ear pain, ear discharge, nose pain, nose congestion, throat pain, throat swelling, mouth pain, mouth swelling, other Cardiovascular: Denies: no symptoms, chest pain, edema, irregular heart rate, lightheadedness, palpitations, syncope, other Respiratory: Denies: no symptoms, cough, orthopnea, shortness of breath, SOB with excertion, SOB at rest, sputum, stridor, wheezing, other Gastrointestinal/Abdominal: Denies: no symptoms, abdomen distended, abdominal pain, black stools, tarry stools, blood in stool, constipated, diarrhea, difficulty swallowing, nausea, poor appetite, poor fluid intake, rectal bleeding , vomiting, other Genitourinary: Denies: no symptoms, burning, discharge, frequency, flank pain, hematuria, incontinence, pain, urgency, other Neurologic/Psychiatric: Denies: no symptoms, anxiety, depressed, emotional problems, headache, numbness, paresthesia, pre-existing deficit, seizure, tingling, tremors, weakness, other Endocrine: Denies: no symptoms, excessive sweating, flushing, intolerance to cold, intolerance to heat, increased hunger, increased thirst, increased urine, unexplained weight gain, unexplained weight loss, other Hematologic/Lymphatic: Denies: no symptoms, anemia, easy bleeding, easy bruising, other Allergies: Coded Allergies: No Known Allergies (Verified Allergy, Unknown, 04/29/09) Subjective no events, but is having worsened pain, is on norco Objective Last 24 Hour Vital Signs Date Time Temp Pulse Resp B/P (MAP) Pulse Ox O2 Delivery O2 Flow Rate FiO2 11/15/17 07:59 98.0 68 20 149/84 (105) 99 98.0 11/15/17 07:54 Room Air 11/15/17 07:51 65 11/15/17 04:00 48 11/15/17 04:00 98.0 61 20 133/78 (96) 99 98.0 11/15/17 00:00 98.2 52 20 127/76 (93) 98 98.2 11/15/17 00:00 52 11/14/17 21:00 Room Air 11/14/17 20:45 98.4 58 23 158/75 (102) 100 98.4 11/14/17 16:00 98.1 58 18 135/86 (102) 97 98.1 11/14/17 12:00 97.9 53 18 116/62 (80) 97 97.9 Intake and Output 11/14/17 11/15/17 19:00 07:00 Intake Total 1360 ml Balance 1360 ml Intake Oral 880 ml IV Total 480 ml # Voids 7 2 # Bowel Movements 1 1 Laboratory Tests 11/15/17 06:55: Carcinoembryonic Antigen [Pending], Prostate Specific Antigen 9.35H Height (Feet): 5 Height (Inches): 9.00 Weight (Pounds): 150 General Appearance: alert EENT: TMs normal Neck: supple Cardiovascular: regular rhythm Respiratory/Chest: normal breath sounds Abdomen: non tender Extremities: non-tender Edema: 1+ Leg (L), 1+ Leg (R) Neurologic: alert Skin: warm/dry Clifton Sal MD Nov 15, 2017 10:40
--- NOTE | 2017-11-15 11:04 | General Progress Note ---
Assessment/Plan Assessment/Plan Encephalopathy due to general medical condition. UTI hx of encephalitis. PLAN: 1. We will start the patient on Zyprexa 2.5 mg at bedtime as needed. 2. Contact the neurologist and may order an MRI of the brain if needed. 3. d/w Subjective Date patient seen: Nov 15, 2017 Neurologic/Psychiatric: Reports: anxiety Allergies: Coded Allergies: No Known Allergies (Verified Allergy, Unknown, 04/29/09) Subjective the pt was somewhat disorganized and stated that he did not sleep well last night. the pt rambles and is unable to remain focused. Objective Last 24 Hour Vital Signs Date Time Temp Pulse Resp B/P (MAP) Pulse Ox O2 Delivery O2 Flow Rate FiO2 11/15/17 07:59 98.0 68 20 149/84 (105) 99 98.0 11/15/17 07:54 Room Air 11/15/17 07:51 65 11/15/17 04:00 48 11/15/17 04:00 98.0 61 20 133/78 (96) 99 98.0 11/15/17 00:00 98.2 52 20 127/76 (93) 98 98.2 11/15/17 00:00 52 11/14/17 21:00 Room Air 11/14/17 20:45 98.4 58 23 158/75 (102) 100 98.4 11/14/17 16:00 98.1 58 18 135/86 (102) 97 98.1 11/14/17 12:00 97.9 53 18 116/62 (80) 97 97.9 Intake and Output 11/14/17 11/15/17 19:00 07:00 Intake Total 1360 ml Balance 1360 ml Intake Oral 880 ml IV Total 480 ml # Voids 7 2 # Bowel Movements 1 1 Laboratory Tests 11/15/17 06:55: Carcinoembryonic Antigen [Pending], Prostate Specific Antigen 9.35H Height (Feet): 5 Height (Inches): 9.00 Weight (Pounds): 150 General Appearance: no apparent distress, alert, confused - oriented to self and place. Neurologic: depressed affect Eleni Kathleen MD Nov 15, 2017 11:04
[2017-11-15 13:03] VITALS: BP 151/80
[2017-11-15 16:34] VITALS: BP 139/79
--- NOTE | 2017-11-15 16:45 | Cardiac Electrophysiology PN ---
Assessment/Plan Assessment/Plan 1. Bradycardia. Heart rate still in the 50s off any sinus edi or AV edi blocking agents. Transferred to telemetry for closer monitoring. Echocardiogram showed EF 55% 2. Hypertension. Hold all blood pressure medication. 3. Dementia. 4. Recurrent falls. 5. History of hemorrhagic stroke. DW and RN at bedside Subjective Subjective Comfortable in NAD. at bedside Objective Last 24 Hour Vital Signs Date Time Temp Pulse Resp B/P (MAP) Pulse Ox O2 Delivery O2 Flow Rate FiO2 11/15/17 16:34 98.0 69 20 139/79 (99) 99 98.0 11/15/17 13:03 98.0 60 20 151/80 (103) 99 98.0 11/15/17 11:53 63 11/15/17 07:59 98.0 68 20 149/84 (105) 99 98.0 11/15/17 07:54 Room Air 11/15/17 07:51 65 11/15/17 04:00 48 11/15/17 04:00 98.0 61 20 133/78 (96) 99 98.0 11/15/17 00:00 98.2 52 20 127/76 (93) 98 98.2 11/15/17 00:00 52 11/14/17 21:00 Room Air 11/14/17 20:45 98.4 58 23 158/75 (102) 100 98.4 Intake and Output 11/14/17 11/15/17 19:00 07:00 Intake Total 1360 ml Balance 1360 ml Intake Oral 880 ml IV Total 480 ml # Voids 7 2 # Bowel Movements 1 1 Laboratory Tests Test 11/15/17 06:55 Carcinoembryonic Antigen Pending Prostate Specific Antigen 9.35 ng/mL (0.13-4.0) H Objective HEAD AND NECK: Showed no JVD or carotid bruits. LUNGS: clear. CARDIOVASCULAR: Bradycardic. S1 and S2 with no gallop or murmur. ABDOMEN: Soft. EXTREMITIES: No pitting edema. Bridger Du MD Nov 15, 2017 16:45
[2017-11-15 20:00] VITALS: BP 149/78
--- NOTE | 2017-11-15 21:00 | Consultation ---
DATE OF CONSULTATION: 11/15/2017 INFECTIOUS DISEASE CONSULTATION CONSULTING PHYSICIAN: Pawel Thapa M.D. PRIMARY ATTENDING PHYSICIAN: Kristin Kong M.D. REASON FOR CONSULTATION: Hematuria, UTI. HISTORY OF PRESENT ILLNESS: This is an 82-year-old white male admitted yesterday because of increasing fall, unsteady gait, weakness, failure to thrive. The patient also has urinary incontinence. UA showed hematuria. PAST MEDICAL HISTORY: Significant for CVA, dementia, and frequent falls. He had multiple admission because of falls and one admission because of bradycardia. ALLERGIES: No known drug allergies. MEDICATIONS: Zyprexa, Cipro, sodium chloride, Tylenol, lamotrigine, clonidine, Zofran. SOCIAL HISTORY: Lives at home. No history of alcohol, drug abuse, or smoking. REVIEW OF SYSTEMS: Unobtainable. The patient is confused. PHYSICAL EXAMINATION: VITAL SIGNS: Temperature 98, pulse 68, blood pressure 149/84, and afebrile since admission. GENERAL APPEARANCE: Comfortable, in no acute distress. HEAD AND NECK: [place] conjunctivae. HEART: Regular. LUNGS: Clear. ABDOMEN: Flat, soft. GENITOURINARY: Normal external genitalia. EXTREMITIES: He has no edema. LABORATORY AND DIAGNOSTIC DATA: WBC 7.5, hemoglobin 14.5, hematocrit 42.6, platelet 141,000. Sodium 140, potassium 4.5, chloride 105, bicarbonate 27, BUN 28, creatinine 1.3. PSA was elevated at 9.35. UA showed rbc of 40-60, wbc negative. Renal ultrasound showed bilateral nonobstructing nephrolithiasis. Chest x-ray, no acute finding. The patient had elbow x-ray that showed no fracture. Lumbar spine x-ray showed mild spondylosis, osteopenia. IMPRESSION: Hematuria, maybe secondary to nephrolithiasis or passing a stone, but also cannot rule out cystitis. The patient has also urinary incontinence, dementia, frequent falls, has history of CVA. CT scan of the head showed old infarct in the left temporoparietal lobe and advanced dementia, psychosis. He has seizure disorder. RECOMMENDATION: We will continue with Cipro. We will follow up the cultures. At the end of my exam, I thank Dr. Kong for involving me in the care of this patient. Pawel Thapa M.D. DR: Miguel Angel JOB#: [id number] CC:
--- NOTE | 2017-11-15 21:33 | General Progress Note ---
Assessment/Plan Problem List: (1) Dehydration ICD Codes: E86.0 - Dehydration SNOMED: 68799150, 09546388, 252156616 (2) Frequent falls ICD Codes: R29.6 - Repeated falls SNOMED: 818056250 (3) Multiple injuries due to trauma ICD Codes: T07.XXXA - Unspecified multiple injuries, initial encounter SNOMED: 700132049, 53155166, 368611777 (4) Failure to thrive SNOMED: 15339079 Qualifiers: Qualified Codes: R62.7 - Adult failure to thrive Status: progressing Assessment/Plan s/p fall uti weak need pt/ot will benefit from snf for pt /ot confused Subjective ROS Limited/Unobtainable: Yes Allergies: Coded Allergies: No Known Allergies (Verified Allergy, Unknown, 04/29/09) Objective Last 24 Hour Vital Signs Date Time Temp Pulse Resp B/P (MAP) Pulse Ox O2 Delivery O2 Flow Rate FiO2 11/15/17 20:00 98.1 65 20 149/78 (101) 96 98.1 11/15/17 16:34 98.0 69 20 139/79 (99) 99 98.0 11/15/17 16:01 57 11/15/17 13:03 98.0 60 20 151/80 (103) 99 98.0 11/15/17 11:53 63 11/15/17 07:59 98.0 68 20 149/84 (105) 99 98.0 11/15/17 07:54 Room Air 11/15/17 07:51 65 11/15/17 04:00 48 11/15/17 04:00 98.0 61 20 133/78 (96) 99 98.0 11/15/17 00:00 98.2 52 20 127/76 (93) 98 98.2 11/15/17 00:00 52 Intake and Output 11/14/17 11/15/17 19:00 07:00 Intake Total 1360 ml Balance 1360 ml Intake Oral 880 ml IV Total 480 ml # Voids 7 2 # Bowel Movements 1 1 Laboratory Tests 11/15/17 06:55: Carcinoembryonic Antigen [Pending], Prostate Specific Antigen 9.35H Height (Feet): 5 Height (Inches): 9.00 Weight (Pounds): 150 General Appearance: confused Kristin Kong MD Nov 15, 2017 21:33
--- NOTE | 2017-11-15 22:01 | General Progress Note ---
Assessment/Plan Assessment/Plan Assessment - Dementia - FTT - hematuria - Urolithiasis Recommendations - 48 hour calorie count - check stool OB - antibiotics per ID - consider urology evaluation Subjective Allergies: Coded Allergies: No Known Allergies (Verified Allergy, Unknown, 04/29/09) Subjective above noted no abdominal complaints d/w re renal ultrasound findings Objective Last 24 Hour Vital Signs Date Time Temp Pulse Resp B/P (MAP) Pulse Ox O2 Delivery O2 Flow Rate FiO2 11/15/17 20:00 98.1 65 20 149/78 (101) 96 98.1 11/15/17 16:34 98.0 69 20 139/79 (99) 99 98.0 11/15/17 16:01 57 11/15/17 13:03 98.0 60 20 151/80 (103) 99 98.0 11/15/17 11:53 63 11/15/17 07:59 98.0 68 20 149/84 (105) 99 98.0 11/15/17 07:54 Room Air 11/15/17 07:51 65 11/15/17 04:00 48 11/15/17 04:00 98.0 61 20 133/78 (96) 99 98.0 11/15/17 00:00 98.2 52 20 127/76 (93) 98 98.2 11/15/17 00:00 52 Intake and Output 11/14/17 11/15/17 19:00 07:00 Intake Total 1360 ml Balance 1360 ml Intake Oral 880 ml IV Total 480 ml # Voids 7 2 # Bowel Movements 1 1 Laboratory Tests 11/15/17 06:55: Carcinoembryonic Antigen [Pending], Prostate Specific Antigen 9.35H Height (Feet): 5 Height (Inches): 9.00 Weight (Pounds): 150 Objective WDWN NCAT supple CTA RRR Abd soft ND NT no edema Leti Saunders MD Nov 15, 2017 22:01
[2017-11-16] VITALS (7 sets, daily range): BP systolic 107–151; BP diastolic 68–86
--- NOTE | 2017-11-16 07:20 | General Progress Note ---
Assessment/Plan Assessment/Plan Assessment and Recs: # Thrombocytopenia at this time remains mild at this moment --> potentially medication related, on antipepileptic versus acute stress from either calls or infection --> okay to continue antipepileptic meds, have been reviewed --> hep and hiv ordered as well # Elevated psa of 9.35, would recommend further eval --> obtain prior trend --> obtain bone study to r/o mets --> consider uro eval # Failure to thrive -- some weight loss over last several months noted --> cea ordered as well --> gi recs appreciated # Frequent falls. No evidence of any fracture. No evidence of any bleed. Increased risk for head injury and fracture because of fall risk. No evidence of any infection. --> admitted for further workup. May need halfway placement. CT head: no acute process per radiologist --> psych and cards recs appreciated --> norco prn for pain, seeing pain management # Dehydration -- started on ivf # Abrasion of skin # Hematuria Greatly appreciate consultation! Subjective Constitutional: Denies: no symptoms, chills, diaphoresis, fever, malaise, weakness, other HEENT: Denies: no symptoms, eye pain, blurred vision, tearing, double vision, ear pain, ear discharge, nose pain, nose congestion, throat pain, throat swelling, mouth pain, mouth swelling, other Cardiovascular: Denies: no symptoms, chest pain, edema, irregular heart rate, lightheadedness, palpitations, syncope, other Respiratory: Denies: no symptoms, cough, orthopnea, shortness of breath, SOB with excertion, SOB at rest, sputum, stridor, wheezing, other Gastrointestinal/Abdominal: Denies: no symptoms, abdomen distended, abdominal pain, black stools, tarry stools, blood in stool, constipated, diarrhea, difficulty swallowing, nausea, poor appetite, poor fluid intake, rectal bleeding , vomiting, other Neurologic/Psychiatric: Denies: no symptoms, anxiety, depressed, emotional problems, headache, numbness, paresthesia, pre-existing deficit, seizure, tingling, tremors, weakness, other Endocrine: Denies: no symptoms, excessive sweating, flushing, intolerance to cold, intolerance to heat, increased hunger, increased thirst, increased urine, unexplained weight gain, unexplained weight loss, other Allergies: Coded Allergies: No Known Allergies (Verified Allergy, Unknown, 04/29/09) Subjective no events, continues to have disorganized thoughts Objective Last 24 Hour Vital Signs Date Time Temp Pulse Resp B/P (MAP) Pulse Ox O2 Delivery O2 Flow Rate FiO2 11/16/17 04:00 97.0 52 20 135/86 (102) 98 97.0 11/16/17 04:00 49 11/16/17 00:00 97.0 56 20 107/68 (81) 96 97.0 11/16/17 00:00 56 11/15/17 21:00 Room Air 11/15/17 20:00 71 11/15/17 20:00 98.1 65 20 149/78 (101) 96 98.1 11/15/17 16:34 98.0 69 20 139/79 (99) 99 98.0 11/15/17 16:01 57 11/15/17 13:03 98.0 60 20 151/80 (103) 99 98.0 11/15/17 11:53 63 11/15/17 07:59 98.0 68 20 149/84 (105) 99 98.0 11/15/17 07:54 Room Air 11/15/17 07:51 65 Intake and Output 11/15/17 11/16/17 19:00 07:00 Intake Total 1080 ml Balance 1080 ml Intake Oral 720 ml IV Total 360 ml # Voids 2 4 # Bowel Movements 1 Height (Feet): 5 Height (Inches): 9.00 Weight (Pounds): 150 General Appearance: no apparent distress EENT: TMs normal Neck: normal alignment Cardiovascular: normal rate Respiratory/Chest: normal breath sounds Abdomen: non tender Extremities: normal range of motion Edema: 1+ Leg (L), 1+ Leg (R) Edema: mild edema Neurologic: alert Skin: warm/dry Clifton Sal MD Nov 16, 2017 07:20
[2017-11-16 08:50] LABS: BASOPHILS % (AUTO) 1.1 % (0.0-2.0); EOSINOPHILS % (AUTO) 6.5 % (0.0-3.0); HEMATOCRIT 45.3 % (42.0-52.0); HEMOGLOBIN 15.5 G/DL (14.2-18.0); LYMPHOCYTES % (AUTO) 9.5 % (20.0-45.0); MEAN CORPUSCULAR VOLUME 95 FL (80-99); MONOCYTES % (AUTO) 11.3 % (1.0-10.0); NEUTROPHILS % (AUTO) 71.6 % (45.0-75.0); PLATELET COUNT 153 K/UL (150-450); RED BLOOD COUNT 4.78 M/UL (4.70-6.10); RED CELL DISTRIBUTION WIDTH 12.8 % (11.6-14.8); WHITE BLOOD COUNT 5.5 K/UL (4.8-10.8)
--- NOTE | 2017-11-16 09:08 | General Progress Note ---
Assessment/Plan Assessment/Plan (1) Lumbago (2) S/p Fall Pt will be continued on Tylenol as needed. D/w Dr. Ugarte and he concurred. Subjective Date patient seen: Nov 16, 2017 Time patient seen: 08:00 - am Constitutional: Reports: weakness Neurologic/Psychiatric: Reports: weakness Allergies: Coded Allergies: No Known Allergies (Verified Allergy, Unknown, 04/29/09) Subjective Patient laying in bed c/o no pain at this time. He is comfortable. Not requesting any Tylenol. Objective Last 24 Hour Vital Signs Date Time Temp Pulse Resp B/P (MAP) Pulse Ox O2 Delivery O2 Flow Rate FiO2 11/16/17 08:00 97.3 57 18 131/74 (93) 97 97.3 11/16/17 07:52 97.3 57 18 131/74 (93) 97 97.3 11/16/17 04:00 97.0 52 20 135/86 (102) 98 97.0 11/16/17 04:00 49 11/16/17 00:00 97.0 56 20 107/68 (81) 96 97.0 11/16/17 00:00 56 11/15/17 21:00 Room Air 11/15/17 20:00 71 11/15/17 20:00 98.1 65 20 149/78 (101) 96 98.1 11/15/17 16:34 98.0 69 20 139/79 (99) 99 98.0 11/15/17 16:01 57 11/15/17 13:03 98.0 60 20 151/80 (103) 99 98.0 11/15/17 11:53 63 Intake and Output 11/15/17 11/16/17 19:00 07:00 Intake Total 1080 ml Balance 1080 ml Intake Oral 720 ml IV Total 360 ml # Voids 2 4 # Bowel Movements 1 Laboratory Tests 11/16/17 08:30: White Blood Count 5.5, Red Blood Count 4.78, Hemoglobin 15.5, Hematocrit 45.3, Mean Corpuscular Volume 95, Mean Corpuscular Hemoglobin 32.3H, Mean Corpuscular Hemoglobin Concent 34.1, Red Cell Distribution Width 12.8, Platelet Count 153, Mean Platelet Volume 5.6L, Neutrophils (%) (Auto) 71.6, Lymphocytes (%) (Auto) 9.5L, Monocytes (%) (Auto) 11.3H, Eosinophils (%) (Auto) 6.5H, Basophils (%) ( Auto) 1.1, Hepatitis A IgM Antibody [Pending], Hepatitis B Surface Antigen [ Pending], Hepatitis B Core IgM Antibody [Pending], Hepatitis C Antibody [Pending ], HIV (1&2) Antibody Rapid [Pending] Height (Feet): 5 Height (Inches): 9.00 Weight (Pounds): 150 General Appearance: no apparent distress, alert EENT: PERRL/EOMI, normal ENT inspection Neck: non-tender, normal alignment Cardiovascular: normal rate, regular rhythm Respiratory/Chest: lungs clear, normal breath sounds Abdomen: non tender, soft Extremities: non-tender Edema: no edema noted Arm (L), no edema noted Arm (R), no edema noted Leg (L), no edema noted Leg (R), no edema noted Pedal (L), no edema noted Pedal (R), no edema noted Generalized Neurologic: alert, responsive Skin: normal pigmentation Objective Procedure: XRAY L Spine Min 4v Indication: Back pain Comparison: None Findings: 3 views of the lumbar spine were obtained. Multilevel narrowing of intervertebral disks and associated endplate and facet osteophytes are present. No malalignment identified. No acute fracture definitely seen. Bones are osteopenic. Impression: Mild spondylosis. Osteopenia No acute injury appreciated. Iban Hunt Nov 16, 2017 09:08
--- NOTE | 2017-11-16 10:24 | Diagnostic Imaging Report ---
Indication: pain Pelvic trauma and pain Findings: Single AP view of the pelvis was performed. No acute fracture is identified. Bilateral hips and sacroiliac joints appear symmetric.There is narrowing of both joints consistent with arthrosis. There is no malalignment. Soft tissues are unremarkable. Bones are osteopenic. Impression: No acute findings.
--- NOTE | 2017-11-16 11:04 | Infectious Diseases Prog Note ---
Assessment/Plan Assessment/Plan antibiotics : ciprofloxacin A 1. r/o UTI 2. nephrolithiasis 3. dementia 4. seizures 5. CVA P 1. continue ciprofloxacin 2. urine culture 3. will follow up cultures Subjective Constitutional: Denies: fever, chills Respiratory: Denies: shortness of breath, dry cough Gastrointestinal/Abdominal: Denies: nausea, vomiting, diarrhea Musculoskeletal: Reports: pain Allergies: Coded Allergies: No Known Allergies (Verified Allergy, Unknown, 04/29/09) Objective Vital Signs Last 24 Hour Vital Signs Date Time Temp Pulse Resp B/P (MAP) Pulse Ox O2 Delivery O2 Flow Rate FiO2 11/16/17 08:00 97.3 57 18 131/74 (93) 97 97.3 11/16/17 07:52 97.3 57 18 131/74 (93) 97 97.3 11/16/17 04:00 97.0 52 20 135/86 (102) 98 97.0 11/16/17 04:00 49 11/16/17 00:00 97.0 56 20 107/68 (81) 96 97.0 11/16/17 00:00 56 11/15/17 21:00 Room Air 11/15/17 20:00 71 11/15/17 20:00 98.1 65 20 149/78 (101) 96 98.1 11/15/17 16:34 98.0 69 20 139/79 (99) 99 98.0 11/15/17 16:01 57 11/15/17 13:03 98.0 60 20 151/80 (103) 99 98.0 11/15/17 11:53 63 Height (Feet): 5 Height (Inches): 9.00 Weight (Pounds): 150 Respiratory/Chest: lungs clear Cardiovascular: normal rate, regular rhythm, no gallop/murmur Abdomen: soft, non tender Extremities: no edema Laboratory Tests Test 11/16/17 08:30 White Blood Count 5.5 K/UL (4.8-10.8) Red Blood Count 4.78 M/UL (4.70-6.10) Hemoglobin 15.5 G/DL (14.2-18.0) Hematocrit 45.3 % (42.0-52.0) Mean Corpuscular Volume 95 FL (80-99) Mean Corpuscular Hemoglobin 32.3 PG (27.0-31.0) H Mean Corpuscular Hemoglobin Concent 34.1 G/DL (32.0-36.0) Red Cell Distribution Width 12.8 % (11.6-14.8) Platelet Count 153 K/UL (150-450) Mean Platelet Volume 5.6 FL (6.5-10.1) L Neutrophils (%) (Auto) 71.6 % (45.0-75.0) Lymphocytes (%) (Auto) 9.5 % (20.0-45.0) L Monocytes (%) (Auto) 11.3 % (1.0-10.0) H Eosinophils (%) (Auto) 6.5 % (0.0-3.0) H Basophils (%) (Auto) 1.1 % (0.0-2.0) Hepatitis A IgM Antibody Pending Hepatitis B Surface Antigen Pending Hepatitis B Core IgM Antibody Pending Hepatitis C Antibody Pending HIV (1&2) Antibody Rapid Negative (NEGATIVE) Current Medications Medications (Trade) Dose Ordered Sig/[place] Route PRN Reason Start Time Stop Time Status Last Admin Dose Admin Acetaminophen (Tylenol) 650 mg Q4H PRN ORAL Mild Pain/Temp > 100.5 11/14/17 21:18 12/14/17 21:17 Ciprofloxacin (Cipro 250mg tab) 250 mg EVERY 12 HOURS ORAL 11/14/17 21:22 11/21/17 21:21 11/16/17 09:14 Clonidine HCl (Catapres Tab) 0.1 mg Q6H PRN ORAL For High Blood Pressure 11/14/17 21:18 12/14/17 21:17 Lamotrigine (LaMICtal) 50 mg Q12HR ORAL 11/14/17 21:18 12/14/17 21:17 11/16/17 09:14 Olanzapine (ZyPREXA) 5 mg Q6H PRN ORAL Agitation 11/15/17 12:00 12/15/17 11:59 11/15/17 12:43 Ondansetron HCl (Zofran) 4 mg Q6H PRN IVP Nausea & Vomiting 11/14/17 21:18 12/14/17 21:17 Aide Perez MD Nov 16, 2017 11:04
--- NOTE | 2017-11-16 14:00 | General Progress Note ---
Assessment/Plan Status: stable, progressing Assessment/Plan Encephalopathy due to general medical condition. UTI hx of encephalitis. PLAN: 1. We will start the patient on Zyprexa 2.5 mg at bedtime as needed. 2. provided ro/st 3. d/w Subjective Date patient seen: Nov 16, 2017 Neurologic/Psychiatric: Reports: anxiety, depressed, emotional problems Allergies: Coded Allergies: No Known Allergies (Verified Allergy, Unknown, 04/29/09) Subjective the pt was somewhat disorganized walking more today. no agitation more alert. the pt has no behavioral issues. Objective Last 24 Hour Vital Signs Date Time Temp Pulse Resp B/P (MAP) Pulse Ox O2 Delivery O2 Flow Rate FiO2 11/16/17 12:00 97.3 53 16 131/76 (94) 97 97.3 11/16/17 08:10 Room Air 11/16/17 08:00 97.3 57 18 131/74 (93) 97 97.3 11/16/17 07:52 97.3 57 18 131/74 (93) 97 97.3 11/16/17 07:30 91 11/16/17 04:00 97.0 52 20 135/86 (102) 98 97.0 11/16/17 04:00 49 11/16/17 00:00 97.0 56 20 107/68 (81) 96 97.0 11/16/17 00:00 56 11/15/17 21:00 Room Air 11/15/17 20:00 71 11/15/17 20:00 98.1 65 20 149/78 (101) 96 98.1 11/15/17 16:34 98.0 69 20 139/79 (99) 99 98.0 11/15/17 16:01 57 Intake and Output 11/15/17 11/16/17 19:00 07:00 Intake Total 1080 ml Balance 1080 ml Intake Oral 720 ml IV Total 360 ml # Voids 2 4 # Bowel Movements 1 Laboratory Tests 11/16/17 08:30: White Blood Count 5.5, Red Blood Count 4.78, Hemoglobin 15.5, Hematocrit 45.3, Mean Corpuscular Volume 95, Mean Corpuscular Hemoglobin 32.3H, Mean Corpuscular Hemoglobin Concent 34.1, Red Cell Distribution Width 12.8, Platelet Count 153, Mean Platelet Volume 5.6L, Neutrophils (%) (Auto) 71.6, Lymphocytes (%) (Auto) 9.5L, Monocytes (%) (Auto) 11.3H, Eosinophils (%) (Auto) 6.5H, Basophils (%) ( Auto) 1.1, Hepatitis A IgM Antibody [Pending], Hepatitis B Surface Antigen [ Pending], Hepatitis B Core IgM Antibody [Pending], Hepatitis C Antibody [Pending ], HIV (1&2) Antibody Rapid Negative Height (Feet): 5 Height (Inches): 9.00 Weight (Pounds): 150 General Appearance: no apparent distress, alert Neurologic: oriented x 3, responsive, depressed affect Eleni Kathleen MD Nov 16, 2017 14:00
--- NOTE | 2017-11-16 14:28 | Cardiac Electrophysiology PN ---
Assessment/Plan Assessment/Plan 1. Bradycardia. Heart rate in the 50s off any sinus edi or AV edi blocking agents. Echocardiogram showed EF 55% 2. Hypertension. Hold all blood pressure medication. 3. Dementia. 4. Recurrent falls. 5. History of hemorrhagic stroke. 6. Elevated psa of 9.35, bone scan to r/o mets pending DW RN Subjective Subjective Comfortable in NAD. No events Objective Last 24 Hour Vital Signs Date Time Temp Pulse Resp B/P (MAP) Pulse Ox O2 Delivery O2 Flow Rate FiO2 11/16/17 12:00 97.3 53 16 131/76 (94) 97 97.3 11/16/17 08:10 Room Air 11/16/17 08:00 97.3 57 18 131/74 (93) 97 97.3 11/16/17 07:52 97.3 57 18 131/74 (93) 97 97.3 11/16/17 07:30 91 11/16/17 04:00 97.0 52 20 135/86 (102) 98 97.0 11/16/17 04:00 49 11/16/17 00:00 97.0 56 20 107/68 (81) 96 97.0 11/16/17 00:00 56 11/15/17 21:00 Room Air 11/15/17 20:00 71 11/15/17 20:00 98.1 65 20 149/78 (101) 96 98.1 11/15/17 16:34 98.0 69 20 139/79 (99) 99 98.0 11/15/17 16:01 57 Intake and Output 11/15/17 11/16/17 19:00 07:00 Intake Total 1080 ml Balance 1080 ml Intake Oral 720 ml IV Total 360 ml # Voids 2 4 # Bowel Movements 1 Laboratory Tests Test 11/16/17 08:30 White Blood Count 5.5 K/UL (4.8-10.8) Red Blood Count 4.78 M/UL (4.70-6.10) Hemoglobin 15.5 G/DL (14.2-18.0) Hematocrit 45.3 % (42.0-52.0) Mean Corpuscular Volume 95 FL (80-99) Mean Corpuscular Hemoglobin 32.3 PG (27.0-31.0) H Mean Corpuscular Hemoglobin Concent 34.1 G/DL (32.0-36.0) Red Cell Distribution Width 12.8 % (11.6-14.8) Platelet Count 153 K/UL (150-450) Mean Platelet Volume 5.6 FL (6.5-10.1) L Neutrophils (%) (Auto) 71.6 % (45.0-75.0) Lymphocytes (%) (Auto) 9.5 % (20.0-45.0) L Monocytes (%) (Auto) 11.3 % (1.0-10.0) H Eosinophils (%) (Auto) 6.5 % (0.0-3.0) H Basophils (%) (Auto) 1.1 % (0.0-2.0) Hepatitis A IgM Antibody Pending Hepatitis B Surface Antigen Pending Hepatitis B Core IgM Antibody Pending Hepatitis C Antibody Pending HIV (1&2) Antibody Rapid Negative (NEGATIVE) Objective HEAD AND NECK: Showed no JVD or carotid bruits. LUNGS: clear. CARDIOVASCULAR: Bradycardic. S1 and S2 with no gallop or murmur. ABDOMEN: Soft. EXTREMITIES: No pitting edema. Bridger Du MD Nov 16, 2017 14:28
--- NOTE | 2017-11-16 15:49 | Diagnostic Imaging Report ---
Indication: Bone survey. Abnormal labs. 82-year-old male Comparison: None Findings: The bones are diffusely osteopenic. No obvious lytic or blastic lesions are identified. Degenerative changes of the spine demonstrated. The sacroiliac joints may be fused. Vascular calcifications are present. IMPRESSION: Diffuse generalized osteopenia moderate in degree.
[2017-11-16] MEDS: Tobramycin Op Soln 0.3% 5ml BOTH EYES SCH (17:41)
--- NOTE | 2017-11-16 19:38 | General Progress Note ---
Assessment/Plan Assessment/Plan Assessment - Dementia - FTT - hematuria - Urolithiasis Recommendations - 48 hour calorie count - check stool OB - antibiotics per ID - consider urology evaluation - I will return Sunday to see pt Subjective Allergies: Coded Allergies: No Known Allergies (Verified Allergy, Unknown, 04/29/09) Subjective above noted no abdominal complaints transfer plans noted Objective Last 24 Hour Vital Signs Date Time Temp Pulse Resp B/P (MAP) Pulse Ox O2 Delivery O2 Flow Rate FiO2 11/16/17 16:03 56 11/16/17 16:00 97.3 54 16 136/68 (90) 96 97.3 11/16/17 12:00 97.3 53 16 131/76 (94) 97 97.3 11/16/17 11:25 55 11/16/17 08:10 Room Air 11/16/17 08:00 97.3 57 18 131/74 (93) 97 97.3 11/16/17 07:52 97.3 57 18 131/74 (93) 97 97.3 11/16/17 07:30 91 11/16/17 04:00 97.0 52 20 135/86 (102) 98 97.0 11/16/17 04:00 49 11/16/17 00:00 97.0 56 20 107/68 (81) 96 97.0 11/16/17 00:00 56 11/15/17 21:00 Room Air 11/15/17 20:00 71 11/15/17 20:00 98.1 65 20 149/78 (101) 96 98.1 Intake and Output 11/15/17 11/16/17 19:00 07:00 Intake Total 1080 ml Balance 1080 ml Intake Oral 720 ml IV Total 360 ml # Voids 2 4 # Bowel Movements 1 Laboratory Tests 11/16/17 08:30: White Blood Count 5.5, Red Blood Count 4.78, Hemoglobin 15.5, Hematocrit 45.3, Mean Corpuscular Volume 95, Mean Corpuscular Hemoglobin 32.3H, Mean Corpuscular Hemoglobin Concent 34.1, Red Cell Distribution Width 12.8, Platelet Count 153, Mean Platelet Volume 5.6L, Neutrophils (%) (Auto) 71.6, Lymphocytes (%) (Auto) 9.5L, Monocytes (%) (Auto) 11.3H, Eosinophils (%) (Auto) 6.5H, Basophils (%) ( Auto) 1.1, Hepatitis A IgM Antibody [Pending], Hepatitis B Surface Antigen [ Pending], Hepatitis B Core IgM Antibody [Pending], Hepatitis C Antibody [Pending ], HIV (1&2) Antibody Rapid Negative Height (Feet): 5 Height (Inches): 9.00 Weight (Pounds): 150 Objective WDWN NCAT supple CTA RRR Abd soft ND NT no edema Leti Saunders MD Nov 16, 2017 19:38
--- NOTE | 2017-11-16 20:25 | General Progress Note ---
Assessment/Plan Problem List: (1) Dehydration ICD Codes: E86.0 - Dehydration SNOMED: 27356539, 71859413, 864716187 (2) Frequent falls ICD Codes: R29.6 - Repeated falls SNOMED: 824361549 (3) Multiple injuries due to trauma ICD Codes: T07.XXXA - Unspecified multiple injuries, initial encounter SNOMED: 511225834, 77046844, 841404074 (4) Failure to thrive SNOMED: 03577261 Qualifiers: Qualified Codes: R62.7 - Adult failure to thrive Status: progressing Assessment/Plan s/p fall uti weak need pt/ot per request wrote transfer [facility] confused ordered sitter Subjective ROS Limited/Unobtainable: Yes Allergies: Coded Allergies: No Known Allergies (Verified Allergy, Unknown, 04/29/09) Objective Last 24 Hour Vital Signs Date Time Temp Pulse Resp B/P (MAP) Pulse Ox O2 Delivery O2 Flow Rate FiO2 11/16/17 20:00 55 11/16/17 16:03 56 11/16/17 16:00 97.3 54 16 136/68 (90) 96 97.3 11/16/17 12:00 97.3 53 16 131/76 (94) 97 97.3 11/16/17 11:25 55 11/16/17 08:10 Room Air 11/16/17 08:00 97.3 57 18 131/74 (93) 97 97.3 11/16/17 07:52 97.3 57 18 131/74 (93) 97 97.3 11/16/17 07:30 91 11/16/17 04:00 97.0 52 20 135/86 (102) 98 97.0 11/16/17 04:00 49 11/16/17 00:00 97.0 56 20 107/68 (81) 96 97.0 11/16/17 00:00 56 11/15/17 21:00 Room Air Intake and Output 11/15/17 11/16/17 19:00 07:00 Intake Total 1080 ml Balance 1080 ml Intake Oral 720 ml IV Total 360 ml # Voids 2 4 # Bowel Movements 1 Laboratory Tests 11/16/17 08:30: White Blood Count 5.5, Red Blood Count 4.78, Hemoglobin 15.5, Hematocrit 45.3, Mean Corpuscular Volume 95, Mean Corpuscular Hemoglobin 32.3H, Mean Corpuscular Hemoglobin Concent 34.1, Red Cell Distribution Width 12.8, Platelet Count 153, Mean Platelet Volume 5.6L, Neutrophils (%) (Auto) 71.6, Lymphocytes (%) (Auto) 9.5L, Monocytes (%) (Auto) 11.3H, Eosinophils (%) (Auto) 6.5H, Basophils (%) ( Auto) 1.1, Hepatitis A IgM Antibody [Pending], Hepatitis B Surface Antigen [ Pending], Hepatitis B Core IgM Antibody [Pending], Hepatitis C Antibody [Pending ], HIV (1&2) Antibody Rapid Negative Height (Feet): 5 Height (Inches): 9.00 Weight (Pounds): 150 Neck: supple Cardiovascular: normal rate Respiratory/Chest: lungs clear Abdomen: soft Kristin Kong MD Nov 16, 2017 20:25
[2017-11-17] VITALS: BP 125/76
[2017-11-17 04:00] VITALS: BP 143/93
[2017-11-17 08:00] VITALS: BP 140/79
[2017-11-17] MEDS: Tobramycin Op Soln 0.3% 5ml BOTH EYES SCH (09:24)
[2017-11-17] MEDS ORDERED: CIPRO250 MG/51 PO (10:55)
[2017-11-17] MEDS ORDERED: CIPROFLOXA250 MG/5 M PO (10:57)
[2017-11-17] MEDS ORDERED: CIPROFLOXACIN250 MG PO (11:01)
--- NOTE | 2017-11-17 11:35 | General Progress Note ---
Assessment/Plan Problem List: (1) Dehydration ICD Codes: E86.0 - Dehydration SNOMED: 48594873, 71187900, 001366035 (2) Frequent falls ICD Codes: R29.6 - Repeated falls SNOMED: 536870868 (3) Multiple injuries due to trauma ICD Codes: T07.XXXA - Unspecified multiple injuries, initial encounter SNOMED: 988359580, 38423711, 582242413 (4) Failure to thrive SNOMED: 40221839 Qualifiers: Qualified Codes: R62.7 - Adult failure to thrive Assessment/Plan awaiting to hear from [facility] s/p mutiple falls uti obs confused afebrile Subjective Allergies: Coded Allergies: No Known Allergies (Verified Allergy, Unknown, 04/29/09) Objective Last 24 Hour Vital Signs Date Time Temp Pulse Resp B/P (MAP) Pulse Ox O2 Delivery O2 Flow Rate FiO2 11/17/17 08:10 Room Air 11/17/17 08:00 57 11/17/17 08:00 98.1 54 22 140/79 (99) 97 98.1 11/17/17 04:00 98.0 49 20 143/93 (110) 97 98.0 11/17/17 04:00 57 11/17/17 00:00 98.5 59 20 125/76 (92) 98 98.5 11/16/17 21:00 Room Air 11/16/17 20:00 98.2 57 23 151/77 (101) 93 98.2 11/16/17 20:00 55 11/16/17 16:03 56 11/16/17 16:00 97.3 54 16 136/68 (90) 96 97.3 11/16/17 12:00 97.3 53 16 131/76 (94) 97 97.3 Intake and Output 11/16/17 11/17/17 19:00 07:00 Intake Total 480 ml Balance 480 ml Intake Oral 480 ml # Voids 5 5 Height (Feet): 5 Height (Inches): 9.00 Weight (Pounds): 150 General Appearance: confused Kristin Kong MD Nov 17, 2017 11:35
[2017-11-17 12:00] VITALS: BP 131/73
--- NOTE | 2017-11-17 12:43 | General Progress Note ---
Assessment/Plan Status: stable Assessment/Plan Assessment and Recs: # Thrombocytopenia at this time remains mild at this moment --> potentially medication related, on antipepileptic versus acute stress from either calls or infection --> okay to continue antipepileptic meds, have been reviewed --> hep and hiv are both negative --> Currently, improved. Plt at 153 # Elevated psa of 9.35, would recommend further eval --> obtain prior trend --> bone study: Diffuse generalized osteopenia moderate in degree. --> consider uro eval # Failure to thrive -- some weight loss over last several months noted --> cea at 2.5 --> gi recs appreciated # Frequent falls. No evidence of any fracture. No evidence of any bleed. Increased risk for head injury and fracture because of fall risk. No evidence of any infection. --> admitted for further workup. May need snf placement. CT head: no acute process per radiologist --> psych and cards recs appreciated --> norco prn for pain, seeing pain management # Dehydration -- started on ivf # Abrasion of skin # Hematuria Greatly appreciate consultation! Subjective Date patient seen: Nov 17, 2017 ROS Limited/Unobtainable: Yes Allergies: Coded Allergies: No Known Allergies (Verified Allergy, Unknown, 04/29/09) Subjective Pt awake and confused. No acute events. DC planning. Objective Last 24 Hour Vital Signs Date Time Temp Pulse Resp B/P (MAP) Pulse Ox O2 Delivery O2 Flow Rate FiO2 11/17/17 08:10 Room Air 11/17/17 08:00 57 11/17/17 08:00 98.1 54 22 140/79 (99) 97 98.1 11/17/17 04:00 98.0 49 20 143/93 (110) 97 98.0 11/17/17 04:00 57 11/17/17 00:00 98.5 59 20 125/76 (92) 98 98.5 11/16/17 21:00 Room Air 11/16/17 20:00 98.2 57 23 151/77 (101) 93 98.2 11/16/17 20:00 55 11/16/17 16:03 56 11/16/17 16:00 97.3 54 16 136/68 (90) 96 97.3 Intake and Output 11/16/17 11/17/17 19:00 07:00 Intake Total 480 ml Balance 480 ml Intake Oral 480 ml # Voids 5 5 Height (Feet): 5 Height (Inches): 9.00 Weight (Pounds): 150 General Appearance: no apparent distress EENT: PERRL/EOMI Neck: normal alignment Cardiovascular: normal peripheral pulses Respiratory/Chest: no respiratory distress Abdomen: soft Clifton Sal MD Nov 17, 2017 12:43
--- NOTE | 2017-11-17 23:58 | General Progress Note ---
Assessment/Plan Status: stable, progressing Assessment/Plan Encephalopathy due to general medical condition. UTI hx of encephalitis. PLAN: 1. We will start the patient on Zyprexa 2.5 mg at bedtime as needed. 2. provided ro/st 3. d/w Subjective Neurologic/Psychiatric: Reports: anxiety Allergies: Coded Allergies: No Known Allergies (Verified Allergy, Unknown, 04/29/09) Subjective the pt was somewhat disorganized walking more today. no agitation more alert. the pt has no behavioral issues. Objective Last 24 Hour Vital Signs Date Time Temp Pulse Resp B/P (MAP) Pulse Ox O2 Delivery O2 Flow Rate FiO2 11/17/17 12:00 97.9 61 20 131/73 (92) 98 97.9 11/17/17 08:10 Room Air 11/17/17 08:00 57 11/17/17 08:00 98.1 54 22 140/79 (99) 97 98.1 11/17/17 04:00 98.0 49 20 143/93 (110) 97 98.0 11/17/17 04:00 57 11/17/17 00:00 98.5 59 20 125/76 (92) 98 98.5 Intake and Output 11/16/17 11/17/17 19:00 07:00 Intake Total 480 ml Balance 480 ml Intake Oral 480 ml # Voids 5 5 Height (Feet): 5 Height (Inches): 9.00 Weight (Pounds): 150 General Appearance: no apparent distress, alert, confused Eleni Kathleen MD Nov 17, 2017 23:58
--- NOTE | 2017-11-18 12:18 | Cardiology Report ---
APPROVED REPORT EKG Measurement Heart [id number] Sinus bradycardia Otherwise normal ECG
--- NOTE | 2017-11-19 07:46 | Discharge Summary ---
Discharge Summary Discharge Summary _ DATE OF ADMISSION: 11/14/2017 DATE OF DISCHARGE: 11/17/2017 REASON FOR ADMISSION: 82 years old male with past medical history of hemorrhagic stroke and seizure disorder, presented with generalized weakness and multiply falls. Patient usually unsteady on his feet and uses walker at home. Recently he sustained recurrent falls, resulting in abrasions: one to his right leg l and one to his right elbow. Patient was incontinent of urine. No fever, no chills . No nausea ,no vomiting. No chest pain, no shortness of breath. Vital signs reveal elevated blood pressure 167/90. Troponin negative. ECG revealed normal sinus rhythm. Laboratory workup revealed no leukocytosis ,stable hemoglobin and hematocrit . BUN 28, creatinine 1.3. Urinalysis with microhematuria. CT of the head revealed no acute intracranial bleeding,mass effect or edema. It showed large old infarct in the left temporal parietal lobe. Moderate atrophy of the brain with evidence of chronic small vessel disease involving white matter tracts noted. X-ray of lumbar spine revealed mild spondylosis, osteopenia ,but no acute findings. X-ray of the right elbow revealed no acute findings. Chest x-ray revealed no acute cardiopulmonary pathology. Patient admitted with diagnoses of frequent falls, failure to thrive, dehydration, multiply injuries due to trauma, dementia. CONSULTANTS: forest fire management officer Dr. Du ID specialist Dr. Perez GI specialist Dr. Saunders process control board operator/oncologist Dr. Sal psychiatrist pain specialist Dr. Ugarte HOSPITAL COURSE: Patient admitted to telemetry floor. Patient started on the IV hydration. Renal parameters and electrolytes were closely monitored . Nephrotoxics were avoided. Electrolytes corrected as needed. Patient noted to have bradycardia. EKG revealed sinus bradycardia. Trim Stencil Maker closely followed. Echocardiogram revealed preserved ejection fraction 55-60% and right ventricular systolic pressure of 30. No evidence of wall motion abnormalities. Patient was off any sinus edi or AV edi blocking agents. Heart rate was in 50s. B Blood pressure was on the low side.Patient was off any antihypertensive medications. Prior to transfer blood pressure 131/73 and heart rate 61. Renal ultrasound revealed evidence of bilateral nonobstructive nephrolithiasis , but no hydronephrosis. Microscopic hematuria was probably due to nephrolithiasis. However, noted elevated PSA 9.35. Bone scan revealed moderate generalized osteopenia, but no evidence of bone metastasis. Patient will need to have urology evaluation upon transfer. Patient started on empiric antibiotic for possible UTI. Infectious disease specialist followed. Urine culture was ordered. X ray of bilateral hips and pelvis revealed no acute findings. Patient was working with physical and occupational therapists. Fall precautions maintained. Pain management was provided as per pain specialist recommendations. Pain management was addressed and controlled. Seizure precautions were maintained. Lamictal was continued. No evidence of seizure activity while in the hospital. Wound care provided for multiply abrasion as per wound protocol. GI specialist closely followed . Stool for occult blood was ordered along with calorie count. Burner Hand recommendations implemented in plan of care. Psychiatrist closely followed and diagnosed patient with encephalopathy secondary to general medical condition. Patient with a history of encephalitis. Patient started on Zyprexa. Reality orientation and supportive therapy provided. Patient required further rehabilitation . Patient was subsequently transferred to acute rehabilitation unit at [facility] for further management. FINAL DIAGNOSES: Dehydration Frequent falls Multiply injuries due to recurrent falls Dementia Hypertension Bradycardia History of CVA Elevated PSA Encephalopathy secondary to general medical condition Possible UTI History of encephalitis Bilateral nonobstructive nephrolithiasis Lumbago DISCHARGE MEDICATIONS: See Medication Reconciliation list. DISCHARGE INSTRUCTIONS: Patient was transferred to acute rehabilitation unit at [facility] for further management. Recommended urology evaluation I have been assigned to dictate discharge summary for this account. I was not involved in the patient's management. Charo Diehl NP Nov 19, 2017 07:46
--- NOTE | 2017-11-19 11:13 | Cardiology Report ---
APPROVED REPORT EXAM: Two-dimensional and M-mode echocardiogram with Doppler and color Doppler. INDICATION BRADYCARDIA M-Mode DIMENSIONS IVSd1.0 (0.7-1.1cm)Left Atrium (MM)2.3 (1.6-4.0cm) LVDd4.6 (3.5-5.6cm)Aortic Root3.7 (2.0-3.7cm) PWd1.4 (0.7-1.1cm)Aortic Cusp Exc.2.3 (1.5-2.0cm) IVSs1.9 cm LVDs2.9 (2.5-4.0cm) PWs2.0 cm Normal left ventricular chamber size, systolic function and wall motion . Left ventricular ejection fraction estimated to be 55-60 %. Mild left ventricular hypertrophy by 2-D. No evidence of pericardial effusion. All other cardiac chamber sizes are within normal limits. Focal aortic valve sclerosis with adequate cusp excursion. Thickened mitral valve leaflets with normal excursion. Mitral annulus and aortic root calcification. Pulmonic valve not well visualized. Normal tricuspid valve structure. IVC at normal size with physiological collapse . A color flow and spectral Doppler study was performed and revealed: No aortic insuffiecy. Mild mitral regurgitation. Mitral diastolic velocities suggest reduced left ventricular relaxation c/w mild LV diastolic dysfunction (Grade I ). Trace tricuspid regurgitation. Tricuspid systolic velocities suggests peak right ventricular systolic pressure of 30 mmHg. Trace pulmonic regurgitation peresnt .
== END 2017-11-17 12:10 | disposition short-term general hospital (02) | DRG 641 ==
LOC: EMR 00:51 → 4E 01:29 → EDBEDREQ 02:28 → 4E 03:28 → 2E 20:52
DX: E86.0 Dehydration (principal); G93.49 Other encephalopathy; N39.0 Urinary tract infection, site not specified; R00.1 Bradycardia, unspecified; R62.7 Adult failure to thrive; S50.311A Abrasion of right elbow, initial encounter; S80.811A Abrasion, right lower leg, initial encounter; W19.XXXA Unspecified fall, initial encounter; R29.6 Repeated falls; F03.90 Unspecified dementia, unspecified severity, without behavioral disturbance, psychotic disturbance, mood disturbance, and anxiety; Z86.73 Personal history of transient ischemic attack (TIA), and cerebral infarction without residual deficits; I10 Essential (primary) hypertension; R97.20 Elevated prostate specific antigen [PSA]; N20.0 Calculus of kidney; M54.5 Low back pain; R26.81 Unsteadiness on feet; D69.6 Thrombocytopenia, unspecified; M47.9 Spondylosis, unspecified; R31.9 Hematuria, unspecified; Z86.61 Personal history of infections of the central nervous system; M85.80 Other specified disorders of bone density and structure, unspecified site
CPT/HCPCS: 36415; 51701; 70450; 71045; 72110; 72170; 76770; 77075; 80048; 81001; 82378; 84153; 84484; 85025; 86703; 86705; 86709; 86803; 87340; 93005; 93306; 96360; 99285